=== PATIENT | female | born 1980 ===

== ENCOUNTER 2021-02-15 03:54 | Emergency (ER) | payer OTHER ==
[2021-02-15 04:05] VITALS: BP 125/85; PULSE 71; RESP 16; TEMP 98.2
== END 2021-02-15 05:10 ==
LOC: EC 03:54
DX: Z11.52 Encounter for screening for COVID-19 (principal); Z20.822 Contact with and (suspected) exposure to COVID-19
CPT/HCPCS: 87635; 99282